=== PATIENT | female | born 1965 | race Caucasian/White ===

== ENCOUNTER 2016-06-02 15:55 | Emergency (ER) | payer BC ==
[2016-06-02 16:17] VITALS: BP 145/82
[2016-06-02] MEDS ORDERED: CLINDAMYCIN HCL 150 MG CAPSULE PO ONE (16:37)
--- NOTE | 2016-06-02 16:42 | ERNOTE ---
Integumentary HPI - General Presenting Symptoms: abscess Time Seen by Provider: 06/02/16 16:19 Source: patient Exam Limitations: no limitations - Immun/Allergies/Home Medications Immunizations: IMMUNIZATION HX Immunizations Up to Date Yes History of Influenza Vaccine No Hx Pneumococcal Vaccination No Allergies/Adverse Reactions: Allergies Allergy/AdvReac Type Severity Reaction Status Date / Time Sulfa (Sulfonamide Allergy Verified 06/02/16 16:16 Antibiotics) Home Medications: HOME MEDICATIONS Amlodipine Besylate [Norvasc] 2.5 mg PO DAILY 05/13/14 [Last Taken Unknown] Vitamin D3/Vitamin K2 [D3 + K2 Dots 1,000 Units Tab] 2 each PO DAILY 05/13/14 [ Last Taken Unknown] glipiZIDE [Glucotrol Xl] 10 mg PO BID 05/13/14 [Last Taken Unknown] metFORMIN HCL [Glucophage] 850 mg PO BID 05/13/14 [Last Taken Unknown] Montelukast Sodium [Singulair] 10 mg PO DAILY 05/14/15 [Last Taken Unknown] Clindamycin HCl [Cleocin HCl] 300 mg PO QID #40 capsule 06/02/16 [Last Taken Unknown] - History of Present Illness Narrative: About a week ago patient noticed an area of pus around the nail bed of her right pinky and was able to squeeze liquid out of it, the area has been red and swollen since, not very sore. About two days ago she noticed redness and swelling over the dorsal side of her right third proximal phalanx, was unable to squeeze anything out of it. She denies any other symptoms, has a history of diabetes and thinks that it is well controlled (A1c two months ago 9.6) Location: Reports: upper extremity Quality: Reports: itching, painful Severity: moderate Exposure: Reports: no cause identified Prior Treatment: Denies: recently seen, currently on antibiotics Review of Systems - Review of Systems Constitutional: Absent: recent illness, fever ENT: Absent: nose congestion, nasal drainage, sore throat Respiratory: Absent: shortness of breath, cough Cardiology: Absent: chest pain Gastrointestinal/Abdominal: Absent: nausea, vomiting, abdominal pain Genitourinary: Present: no symptoms reported Musculoskeletal: Present: See HPI Skin: Present: See HPI Neurological: Absent: weakness, numbness - Patient's Past Medical History Patient History - Medical: Diabetes Type 2, Obesity Patient History - Cardiac/Respiratory: Asthma, Hypertension Patient History - Cancer: No Hx of Cancer Patient History - Surgical Procedures: , Hysterectomy Patient History - Other: None LMP (females 10-50): 2000 - Family History Mother Family History - Medical: History Unknown Father Family History - Medical: History Unknown - Social History Living Situations: spouse Abuse History: No History of abuse Psych History: No pertinent hx Smoking Status: Never smoker Do you dip or chew tobacco: No Alcohol Use: none Drug Use: none - Immunizations Immunizations Up to Date: Yes Hx Pneumococcal Vaccination: No History of Influenza Vaccine: No Physical Exam - Physical Exam General Appearance: Present: wd/wn, no apparent distress, obese Respiratory: Present: no respiratory distress, normal breath sounds, lungs clear Cardiovascular/Chest: Present: regular rate, rhythm, no murmur Extremity Exam: Present: normal except - - paronichia right fifth finger, over dorsum of right third proximal phalanx erythema, swelling, tenderness, very faint lymphangitis extending over dorsum of hand Neurological Exam: Present: alert, oriented, no motor/sensory deficits Skin Exam: Present: normal color, warm/dry ED Progress - Results and Orders Patient's Lab Results:: I have reviewed the patient's lab results. - Vital Signs Patient's Vital Signs:: I have reviewed the patient's vital signs. Vital Signs: Vital Signs 06/02/16 16:11 Temperature 37.4 C Pulse Rate 99 Respiratory 16 Rate Blood Pressure 145/82 O2 Sat by Pulse 99 Oximetry - Progress/Reassessment Chief Complaint: Cellulitis Progress Note-Subjective: 06/02/16 17:33 patient received IM rocephin discussed results and plan with patient stressed importance of follow up tomorrow to have infection reassessed, if there is not improvement she might need IV antibiotic and surgical intervention discussed need for strict control of diabetes Departure Clinical Impression: Paronychia of finger of right hand, Cellulitis of finger of right hand Uncontrolled diabetes mellitus Qualifiers: Diabetes mellitus type: type 2 Diabetes mellitus complication status: with unspecified complications Diabetes mellitus joint terminal attack controller insulin use: without fci use Qualified Code(s): E11.8 - Type 2 diabetes mellitus with unspecified complications - Departure Disposition: Home self-care Condition: Good Instructions: Cellulitis, Adult, [id number], Form - Excuse from Work, School , or Physical Activity Additional Instructions: take the antibiotic as instructed keep the hand elevated call your doctor tomorrow for follow up if you can't get in with him tomorrow return to the ER for reevaluation Referrals: Solitario Feliz MD [Primary Care Provider] - Prescriptions: Clindamycin HCl [Cleocin HCl] 300 mg PO QID #40 capsule
[2016-06-02 16:44] LABS: Hematocrit 39.1 % (37.0-47.0); Hemoglobin 13.4 gm/dL (12.5-16.0); Mean Cell Volume 84.3 fl (78-100); Mean Corpuscular Hemoglobin 28.9 pg (27-31); Mean Corpuscular Hgb Conc 34.3 g/dl (32-36); Mean Platelet Volume 9.3 fl (6.0-9.5); Neutrophil # 4.2 K/mm3 (1.3-6.0); Neutrophil % 60.1 % (42-75.0); Platelet Count 325 K/mm3 (150-450); Red Blood Count 4.64 M/mm3 (4.2-5.4); Red Cell Distribution Width 12.6 % (11.5-14.0); White Blood Count 6.9 K/mm3 (4.0-10.5)
[2016-06-02] MEDS ORDERED: CLINDAMYCIN HCL 150 MG CAPSULE ONE (16:48)
[2016-06-02 16:55] LABS: Albumin * 3.4 gm/dl (3.4-5.0); Anion Gap 14.7 mmol/L (6.8-13.8); BUN/Creatinine Ratio 15.8 (9.0-21.6); Bilirubin, Total 0.4 mg/dL (0.0-1.1); Ca. Corrected For Albumin 9.3 mg/dL (8.4-10.2); Calcium * 9.1 mg/dL (7.9-10.9); Carbon Dioxide 25.4 mmol/L (24-32.6); Potassium 4.1 mmol/L (3.4-4.6)
[2016-06-02 17:00] LABS: Hemoglobin A1C 10.1 % (4.00-6.0)
== END 2016-06-02 17:39 | disposition home or self-care (01) ==
LOC: ER 15:55
DX: L03.011 Cellulitis of right finger (principal); E11.8 Type 2 diabetes mellitus with unspecified complications; I10 Essential (primary) hypertension